=== PATIENT | female | born 1985 | race Caucasian/White ===

== ENCOUNTER 2018-12-27 18:55 | Emergency (ER) | payer OTHER ==
--- NOTE | 2018-12-27 19:23 | PDOC ---
Rapid Medical Evaluation Medical Evaluation: I have performed a brief in-person evaluation of this patient. The patient presents with a chief complaint of: C/O lower abd pain since 4 days ago; had 1 episode of NBNN emesis; sxs started after intercourse; also with increased urinary frequency, also with ?yellowish vaginal discharge x 3 weeks; denies dysuria; denies prior abd surgeries; [facility] 12/13 Pertinent physical exam findings: Abdomen soft/NT; pelvic deferred I have ordered the following: labs The patient will proceed to the ED for further evaluation. 12/27/18 19:20
[2018-12-27 19:24] VITALS: BP 125/70; PULSE 86; TEMP 98.3; BMI 25.4
--- NOTE | 2018-12-27 20:46 | PDOC ---
History of Present Illness - General Chief Complaint: Pain Stated Complaint: LOWER ABD/PAIN Time Seen by Provider: 12/27/18 19:20 History Source: Patient Exam Limitations: No Limitations - History of Present Illness Initial Comments: 12/27/18 20:54 HISTORY OF PRESENT ILLNESS: 33-year-old woman denies medical history presents emergency department for evaluation of dyspareunia, yellow vaginal discharge, urinary frequency for the past 3 days. Patient reports her and her had protected vaginal intercourse proximal leg 3 days ago and the symptoms had started after the intercourse. She denies any vaginal bleeding, rectal bleeding , constipation or diarrhea. Patient reports her last menstrual period was 12/13. No recent travel or sick contacts. PAST MEDICAL HISTORY: Denies past medical history SURGICAL HISTORY: Denies ALLERGIES: No known drug allergies REVIEW OF SYSTEMS General/Constitutional: Denies fever or chills. Denies weakness, weight change. HEENT: Denies change in vision. Denies ear pain or discharge. Denies sore throat. Cardiovascular: Denies chest pain or shortness of breath. Respiratory: Denies cough, wheezing, or hemoptysis. Gastrointestinal: Denies nausea, vomiting, diarrhea or constipation. Denies rectal bleeding. Genitourinary: see HPI Musculoskeletal: Denies joint or muscle swelling or pain. Denies neck or back pain. Skin and breasts: Denies rash or easy bruising. Neurologic: Denies headache, vertigo, loss of consciousness, or loss of sensation. Psychiatric: Denies depression or anxiety. Endocrine: Denies increased thirst. Denies abnormal weight change. Hematologic/Lymphatic: Denies anemia, easy bleeding, or history of blood clots. Allergic/Immunologic: Denies hives or skin allergy. Denies latex allergy. PHYSICAL EXAM General Appearance: Well-appearing, appropriately dressed. No apparent distress , no intoxication. Respiratory/Chest: Lungs CTAB. No shortness of breath, chest tenderness, respiratory distress, accessory muscle use. No crackles, rales, rhonchi, stridor , wheezing, dullness Cardiovascular: RRR. S1, S2. No JVD, murmur, bradycardia, tachycardia. Vascular Pulses: Dorsalis-Pedis (R): 2+, Dorsalis-Pedis (L): 2+ Gastrointestinal/Abdominal: Normal bowel sounds. Abdomen soft, non-distended. No tenderness or rebound tenderness. No organomegaly, pulsatile mass, guarding, hernia, hepatomegaly, splenomegaly. 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 Female Pelvic Exam: positive: normal external exam, cervical os closed, normal adnexa, normal size ovaries, discharge (malodorous yellow). negative: CMT, Bartholin mass, adnexal tenderness, vaginal bleeding Medical Decision Making - Medical Decision Making 12/27/18 21:30 A/P: 33-year-old woman with bacterial vaginosis Urine per RME Genital culture We'll discharge home on metronidazole. We'll await testing to determine whether PO or intravaginal gel. 12/27/18 22:20 Urinalysis is not suggestive of infection. Urine testing is negative. I will discharge patient home with prescription for metronidazole 500 mg twice a day for 7 days. I discussed the physical exam findings, ancillary test results and final diagnoses with the patient. I answered all of the patient's questions. The patient was satisfied with the care received and felt comfortable with the discharge plan and treatment plan. The patient will call their primary care physician within 24 hours to arrange follow-up and will return to the Emergency Department with any new, persistent or worsening symptoms. Portions of this note have been documented using voice recognition software. As a result, errors may occur in the store deli manager process. Effort has been made to correct all grammatical and store deli manager error, but some may have been missed. *DC/Admit/Observation/Transfer Diagnosis at time of Disposition: Bacterial vaginosis - Discharge Dispostion Disposition: HOME Condition at time of disposition: Stable Decision to Admit order: No - Prescriptions Prescriptions: Metronidazole 500 mg PO BID #14 tablet - Referrals Referrals: Sarai Casiano [Primary Care Provider] - - Patient Instructions Additional Instructions: Take metronidazole as directed. No sex until symptoms have resolved. Genital culture and gonorrhea and chlamydia cultures will be available in 3 days. You may call and leave message for return phone call with lab results. Be sure to be clear with your name, birthdate, and phone number Followup with [facility] or PMD in one week for reevaluation and retesting. - Post Discharge Activity
[2018-12-27 21:59] LABS: PH,URINE 6.5 (5.0-8.0); URINE APPEARANCE CLEAR; URINE BILIRUBIN NEGATIVE (NEGATIVE); URINE COLOR YELLOW; URINE GLUCOSE (UA) NEGATIVE (NEGATIVE); URINE KETONE NEGATIVE (NEGATIVE); URINE LEUK ESTERASE NEGATIVE (NEGATIVE); URINE NITRITE NEGATIVE (NEGATIVE); URINE PROTEIN NEGATIVE (NEGATIVE); URINE UROBILINOGEN 0.2 mg/dL (0.2-1.0)
== END 2018-12-27 23:33 | disposition home or self-care (01) ==
LOC: JER 18:55
DX: N76.0 Acute vaginitis (principal); B96.89 Other specified bacterial agents as the cause of diseases classified elsewhere
CPT/HCPCS: 36415; 81003; 84703; 87070; 87086; 87205; 87491; 87591; 99282-25